=== PATIENT | male | born 1980 | race Hispanic/Latino ===

== ENCOUNTER 2021-02-08 12:39 | Emergency (ER) | payer SELFPAY ==
[~2021-02-08] VITALS: Ht 167.6 cm; Wt 74.8 kg
[2021-02-08] MEDS ORDERED: DOXYCYCLINE HY100 MG PO (13:38)
[2021-02-08] MEDS ORDERED: PREDNISONE20 MG PO (13:38)
== END 2021-02-08 13:55 | disposition home or self-care (01) ==
LOC: FSED 13:10
DX: L30.9 Dermatitis, unspecified (principal)
CPT/HCPCS: 99283